=== PATIENT | male | born 2000 | race Caucasian/White ===

== ENCOUNTER 2025-01-09 06:24 | Outpatient (REF) | payer OTHER, SELFPAY ==
--- NOTE | ~2025-01-09 | US_ITS ---
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 COMPARISON: There are no prior studies available for comparison. FINDINGS: Real-time grayscale ultrasound imaging of the scrotum was performed. RIGHT TESTICLE: The right testis measures 4.1 x 1.9 x 2.6 cm and demonstrates normal homogeneous echotexture. No masses are seen. The right testis demonstrates normal color Doppler flow. RIGHT EPIDIDYMIS: Normal in size, shape, and vascularity. There are two epididymal head cysts measuring 6 x 4 x 5 mm and 3 x 2 x 2 mm. LEFT TESTICLE: The left testis measures 4.4 x 2.0 x 2.7 cm and demonstrates normal homogeneous echotexture. No masses are seen. The left testis demonstrates normal color Doppler flow. LEFT EPIDIDYMIS: Normal in size, shape, and vascularity. There is an epididymal head cyst measuring 5 x 3 x 3 mm. VARICOCELE: None. HYDROCELE: No significant hydrocele is seen. OTHER COMMENTS: None. US/US scrotum IMPRESSION: Bilateral epididymal head cysts as described. Otherwise unremarkable scrotal ultrasound. Electronically signed by: Radames Mendez MD 01/09/2025 03:54 PM EDT
--- OUTSIDE RECORDS SUMMARY | 2025-01-09 06:27 | XMS_ITS | Clinical Summary ---
Author Organization [facility] spital Address [address] [place] [address] Phone Care Team Providers Care Nutrition Aide Name Role Phone Unavailable Primary Care Provider Unavailabl e Social History Tobacco Use Types Packs/Day Years Used Date Smoking Tobacco: Never Assessed Sex and Gender Information Value Date Recorded Sex Assigned at Not on file Legal Sex Male 5:11 PM EDT Gender Identity Not on file Sexual Orientation Not on file Plan of Treatment Not on file
== END 2025-01-09 06:25 | disposition home or self-care (01) ==
LOC: HO.UMASIMG 06:24
PROVIDERS: Visit Provider Internal Medicine
DX: D40.12 Neoplasm of uncertain behavior of left testis (principal)
CPT/HCPCS: 76870

== ENCOUNTER → 2025-01-09 15:29 | Outpatient (BNV) | payer OTHER, SELFPAY | PROVIDERS: Visit Provider Radiology Diagnostic Radiology | DX: D40.12 Neoplasm of uncertain behavior of left testis (principal) | CPT/HCPCS: 76870; 93976 ==